=== PATIENT | female | born 1990 | race Caucasian/White ===

== ENCOUNTER 2020-06-21 14:21 | Outpatient (CLI) | payer OTHER, SELFPAY ==
--- NOTE | ~2020-06-21 | US_ITS ---
EXAMINATION: US OB /maternal detail DATE: 06/21/2020 15:15 INDICATION: survey TECHNIQUE: Multiple obstetric sonographic images performed. FINDINGS: No prior studies for comparison. There is a single living fetus in transverse presentation. The placenta is anterior without placenta previa. Amniotic fluid volume is normal. cardiac activity and movement is noted with a heart rate of 147 beats per minute. The following anatomy was identified as normal: 4 chamber heart 3 vessel cord cord insertion kidneys urinary bladder stomach spine diaphragm ventricles cisterna magna cerebellum The following biometric data were obtained: BPD: 49mm corresponds to gestational age 20 weeks 6 days. Head circumference: 181 mm corresponds to gestational age 20 weeks 3 days. Abdominal circumference: 146 mm corresponds to gestational age 19 weeks 6 days. Femur length: 34 mm corresponds to gestational age 20 weeks 6 days. Head circumference to abdominal circumference ratio: 1.23 (normal range for expected gestational age is 1.07-1.25). Estimated weight: 349 grams +/- 52 grams using Hadlock method. IMPRESSION: 1: Single living intrauterine with an estimated gestational age of 20weeks 4days by current ultrasound measurements, with an EDC of 11/04/2020 in transverse presentation. 2. Normal survey. Reviewed, dictated and finalized at location A. EMENTATION DIRECTOR IMPRESSION: 1: Single living intrauterine with an estimated gestational age of 20 weeks 4days by current ultrasound measurements, with an EDC of 11/04/2020 in tra nsverse presentation. 2. Normal survey.
== END 2020-06-21 14:22 | disposition home or self-care (01) ==
LOC: ANHIMG 14:27
PROVIDERS: Visit Provider Obstetrics & Gynecology
DX: Z36.89 Encounter for other specified antenatal screening (principal); Z3A.20 20 weeks gestation of pregnancy
CPT/HCPCS: 76805

== ENCOUNTER 2020-09-27 11:51 | Outpatient (CLI) | payer MEDICAID, SELFPAY ==
--- NOTE | ~2020-09-27 | US_ITS ---
US OB follow up DATE: 09/27/2020 12:33 INDICATION: Measurement of size and dates TECHNIQUE: Real-time imaging and Doppler analysis COMPARISON: 06/21/2020 obstetrical ultrasound FINDINGS: Live single intrauterine intrauterine gestation, fetus in longitudinal lie, vertex presenta tion. heart rate of 144 bpm. Anterolateral fundal placenta. Amniotic fluid index measures 13.0 cm, which is within normal range. 5th percentile FOREST 7.9 cm, 95th percentile FOREST is 25.9 cm. Biparietal diameter: 8.61 cm; 34 weeks 5 days Head circumference: 30.67 cm; 34 weeks 1 day Abdominal circumference: 31.61 cm; 35 weeks 4 days Femur length: 6.88 cm; 35 weeks 2 days Composite age by Hadlock formula based upon the current measurements would be 35 weeks +/- 2 weeks 3 days with HUGO of 11/01/2020, compared to 10/31/2020 by LMP. Estimated weight is 2630 +/- 394.5 g. Estimated weight-GP: 50.4% Femur length/BPD: 79.95, within normal range of 71.0-87.0 Head circumference/abdominal circumference: 0.97, within normal range of 0.93-1.11 Femur length/abdominal circumference: 21.77, within normal range of 20.00-24.00 Femur length/head circumference: 22.44, slightly above normal range of 20.10-22.30 IMPRESSION: Normal amniotic fluid index of 13.0 Estimated weight is 2630 +/- 394.5 g Reviewed, dictated and finalized at Location A. Reviewed, dictated and finalized at location A.
== END 2020-09-27 11:52 | disposition home or self-care (01) ==
LOC: ANHIMG 12:11
PROVIDERS: Visit Provider Nurse Practitioner
DX: O36.5930 Maternal care for other known or suspected poor fetal growth, third trimester, not applicable or unspecified (principal); Z3A.00 Weeks of gestation of pregnancy not specified
CPT/HCPCS: 76816

== ENCOUNTER 2020-10-18 07:56 | Outpatient (CLI) | payer MEDICAID, SELFPAY ==
--- NOTE | ~2020-10-18 | US_ITS ---
EXAMINATION: US OB follow up EXAM DATE: 10/18/2020 08:29 INDICATION: Size less than dates. 3rd trimester. TECHNIQUE: Pelvic obstetrical transabdominal sonogram was performed by a technologist. There are mu ltiple grayscale and Doppler images available for interpretation. Comparison is made to prior examina tion from 09/27/2020. FINDINGS: There is a single fetus identified in vertex presentation with a heart rate of 126 beats pe r minute. The placenta is located in the anterior position. There is no sonographic evidence of retr oplacental hemorrhage identified. The amniotic fluid index is 10.0 centimeters, which is normal. BIOMETRIC DATA: Biparietal diameter (BPD): 9.0 cm ----------------> 36 weeks 3 days. Head circumference (HC): 32.9 cm ----------------> 37 weeks 3 days. Abdominal circumference (AC): 33.2 cm ----------> 37 weeks 1 day. Femur length (FL): 7.3 cm --------------------------> 37 weeks 3 days. These measurements are concordant. HC/AC ratio is 0.99 (The 5th -- 95th percentile range is 0.92-1.05. Estimated weight is 3125 g +/- 469 g. This is the 37th percentile when the currently reported clinical gestation age 38 weeks 1 day, clinical estimated date of delivery (HUGO-OPE) 10/31/2020 is use d. estimated gestational age based on measurements from this exam is 37 weeks 1 day, with an es timated date of delivery (HUGO-AUA) 11/07. IMPRESSION: 1. Single fetus in vertex presentation with heart rate 126 beats per minute. 2. Estimated weight of 3125 grams, 37th percentile using the currently reported clinical gesta tion age of 38 weeks 1 day, HUGO(OPE) 10/31. 3. Normal FOREST 10.0 cm. Reviewed, dictated and finalized at location B. IMPRESSION: 1. Single fetus in vertex presentation with heart rate 126 beats per minute. 2. Estimated weight of 3125 grams, 37th percentile using the currently r eported clinical gestation age of 38 weeks 1 day, HUGO(OPE) 10/31. 3. Normal FOREST 10.0 cm.
== END 2020-10-18 07:57 | disposition home or self-care (01) ==
PROVIDERS: Visit Provider Obstetrics & Gynecology
DX: O36.5933 Maternal care for other known or suspected poor fetal growth, third trimester, fetus 3 (principal); Z3A.38 38 weeks gestation of pregnancy
CPT/HCPCS: 76816

== ENCOUNTER 2020-10-25 05:05 | Inpatient (IN) | payer SELFPAY ==
[2020-10-25] VITALS (50 sets, daily range): BP systolic 83–144; BP diastolic 41–125; PULSE 50–94; RESP 16–20; TEMP 36.2–37; O2SAT 100; BMI 26.5
--- NOTE | 2020-10-25 05:42 | LDADM ---
This patient, Sarah Gamble, was admitted to Labor/Delivery/Recovery 102 on 10/25/20 at 05:05. Plans for labor, pain management and were discussed with patient. Patient/family oriented to hospital policies and general routines including ID bracelet, bed and alarms, visiting hours, pain management, procedures, bathroom and other care routines, personal items, smoking policy, room service/diet and guest tray routines, infant security routines, and visiting hours. Patient/Family are encouraged to report perceived risks to care and to ask questions if they do not understand what they are told or what they should do. See OBIX for further documentation.
[2020-10-25 05:58] LABS: Basophils Absolute Auto 0.1 K/mm3 (0.0-0.1); Basophils Percent Auto 0.8 % (0.2-1.2); Eosinophils Absolute Auto 0.3 K/mm3 (0-0.3); Eosinophils Percent Auto 3.5 % (0-4.4); Hematocrit 34.7 % (37.0-47.0); Hemoglobin 11.1 g/dL (12.0-15.0); Immature Granulocyte Absolute 0.05 K/mm3 (0.00-0.031); Immature Granulocyte Percent A 0.6 % (0-0.5); Lymphocytes Absolute Auto 2.15 K/mm3 (0.9-3.2); Lymphocytes Percent Auto 25.2 % (18.3-44.2); Mean Corpuscular Volume 75.1 fl (80-100); Monocytes Absolute Auto 0.8 K/mm3 (0.1-0.6); Neutrophils Absolute Auto 5.2 K/mm3 (1.3-6.7); Neutrophils Percent Auto 60.9 % (45.5-73.1); Platelet Count Result 238 k/mm3 (150-375); Red Blood Count 4.62 M/mm3 (4.2-5.4); Red Cell Distribution Width 14.1 % (11.5-14.5); White Blood Count 8.5 K/mm3 (4.5-10.0)
[2020-10-25] MEDS: OXYTOCIN 30 UNITS/NS 500 ML 30 UNITS/500 ML BAG IV CONT (06:16)
[2020-10-25] MEDS: LACTATED RINGERS 1,000 ML 125 ML IV CONT (06:17)
--- NOTE | 2020-10-25 09:36 | WPDOBADMIT ---
Obstetrics - Admit Note Admission Note: record reviewed. No pertinent additions to the history and/or any subsequent changes in the physical findings that are not consistent with the expected course of the were found. AROM clear fluid 3//-2 vertex Additions to the history and/or subsequent changes in the physical findings follow. None.
[2020-10-25 10:31] LABS: Rapid Plasma Reagin Non-Reactive (NonReactive)
[2020-10-25] MEDS: fentaNYL CITRATE INJ (*CRX) 100 MCG/2 ML VIAL IV PUSH (11:39)
--- NOTE | 2020-10-25 13:44 | PM.OBPRVD ---
OB - Delivery Note Procedure Delivery date: 10/25/20 Procedure: events: Labor Induction Intrapartal events: None Induction method: AROM and per pitocin protocol Delivery monitor: external FHT and external uterine Route of delivery: Laceration Description: Perineal - 1st Degree Delivery repair: vicryl Specimen: No Quantitative Blood Loss (ml): 70 Anesthesia type: None Disposition: floor Baby Date of : 10/25/20 Time of : 13:31 Weeks of gestation at delivery: 39 gender: Female Weight (pounds): 6 Weight (ounces): 10 presentation: vertex position: Left Occiput Anterior Placenta delivery description: Spontaneous cord vessel description: 3 Vessels and Clamped/Cut score one minute: 8 score five minutes: 9
[2020-10-25] MEDS: OXYTOCIN 30 UNITS/NS 500 ML 30 UNITS/500 ML BAG 125 UNITS IV CONT (14:05)
[2020-10-25] MEDS: WITCH HAZEL 40 PADS 1 PAD TOPICAL (15:46)
[2020-10-25] MEDS: BENZOCAINE 20% AER SPR (*SP) 56 GM CAN 1 SPRAY TOPICAL (15:46)
--- NOTE | 2020-10-25 17:29 | OBPPTRN ---
1643 Patient transferred to post room #278 via W/C. Support person present. Oriented to unit, room, information board, rooming in, admission packet and security measures. Patient verbalizes understanding.
[2020-10-26 05:12] LABS: Hematocrit 35.1 % (37.0-47.0)
[2020-10-26 07:25] VITALS: BP 98/58; PULSE 57; RESP 16; TEMP 36.6; O2SAT 100
[2020-10-26] MEDS: IBUPROFEN 600 MG TABLET PO (08:07)
[2020-10-26] MEDS: DOCUSATE SODIUM 100 MG CAPSULE PO (08:07)
[2020-10-26 11:48] VITALS: BP 108/68; PULSE 68; RESP 16; TEMP 36.6; O2SAT 100
--- NOTE | 2020-10-26 12:07 | PCCCNOTE ---
Care Coordination Consult: Met with pt. and significant other Jah today. Pt. lives at home with Jah and her four children. FOB to this child and her two year old is Jaden. Pt. has questions for nursing regarding whether or not Jah can sign the certificate evene though Jaden is the FOB to baby girl. Pt. is currently received WIC and Link services, plans to add the baby at discharge. Has all necessary equipment for the child at home including a crib, carseat, clothing, bottles, and diapers. A gift basket was provided to pt. resources was also provided to pt. Also provided counseling resources and encouraged pt. to utilize services if she needed. Pt. plans to return home with Jah. Feels safe with Jah and FOB Jaden. Does have further family support including Jah's mother. Pt. denies any further needs.
--- NOTE | 2020-10-26 12:10 | WPDANLDPN2 ---
Anes-Prog Note L&D Date/Time: 10/26/20 12:10 Comfortable throughout: labor and delivery Neuraxial method: epidural Epidural/Spinal procedure site: clean & non-tender Neuro status: Neuro function grossly intact. Cardiovascular status: normal Respiratory status: normal Airway patency: baseline Mental status: baseline Post-Op hydration status: normal Vital Signs: Last Vital Signs Temp 36.6 C 10/26/20 11:48 Pulse 68 10/26/20 11:48 Resp 16 10/26/20 11:48 BP 108/68 10/26/20 11:48 Pulse Ox 100 10/26/20 11:48 Pain score (VAS): /10 I/O: Intake & Output 10/25/20 10/26/20 10/26/20 23:59 07:59 15:59 Intake Total 240 Balance 240 Post-procedural complaints: none Patient feedback: Patient satisfied with anesthetic care.
--- NOTE | 2020-10-26 17:12 | PM.OBPNVD ---
OB - PN: Subj Subjective Date/time seen: 10/26/20 17:12 patient reports doing well desires home to see about her son. moderate bleeding and mild cramping. OB - PN: Obj Data Labs CBC & Chem 7: 10/26/20 02:37 Labs: Laboratory Results - last 24 hr 10/26/20 02:37 Hgb 11.0 L Hct 35.1 L OB - PN A/P Assessment and Plan (1) (normal spontaneous vaginal delivery): Code(s): O80 - Encounter for full-term uncomplicated delivery Status: Acute Assessment and Plan: d/c home declines birthcontrol at this time. Time Spent With Patient Time: Total time spent is greater than 50% in coordination of care (as documented) at patient's floor/unit and/or counseling patient: Exam Narrative: Exam Narrative: ff @ umbilicus
[2020-10-27 15:18] VITALS: BP 103/61; PULSE 78; RESP 20; TEMP 36.9; O2SAT 100
--- NOTE | 2020-10-31 11:27 | P.DS_ITS ---
DS: Admitting Diagnosis Admitting Diagnosis Admitting Diagnosis: induction of labor OB - DS: Summary OB Procedures : NST and Ultrasound OB Procedures Intrapartum: Spontaneous Vag Delivery OB Procedures: : None Peripartum Data Delivery Method: Natural Vaginal Laceration Description: Perineal - 1st Degree complications: none Time Spent with Patient Time attestation: Total time spent providing and/or coordinating discharge services: Discharge Plan Discharge Attending physician on discharge: Samuel Lang Discharging Clinician: Samuel Lang Patient Disposition: Home, Self-Care Activity: may shower and pelvic rest Diet: regular Discharge Instructions: Education: Mom and Baby Guide Given to: Mother Follow-Up: Call your delivering provider's office for an appointment to be seen in: As directed Mom and baby should come to the [facility] for the follow-up appointment. Appointment Date/Time: October 27, 2020 at 3:00 pm What to expect at your follow-up visit: Blood Pressure Check Physical Assessment Call [phone] if you are unable to keep your appointment time. BREAST CARE: * Wear a snug supportive bra. * For engorgement discomfort: Bottle Feeding: * May apply ice packs EPISIOTOMY/PERINEAL CARE: * Until bleeding stops, use your stuart bottle after urinating * Change your pad frequently throughout the day * You may take sitz baths several times a day (fill your bathtub with warm water and soak for 20 minutes.) Do NOT bathe in the water * No tub baths until seen by your physician - You may shower ACTIVITY: * Rest as much as possible. * Do not exercise or lift anything heavier than your baby (such as laundry or other children.) * Avoid stairs or driving as much as possible. * Do not put anything into the vagina. No douching, tampons, or sexual activity until seen by physician. NOTIFY PHYSICIAN IF YOU HAVE ANY QUESTIONS OR IF ANY OF THE FOLLOWING SYMPTOMS OCCUR: * If your perineal area becomes red, swollen, or more painful than what you have experienced in the hospital. * If your vaginal bleeding becomes foul smelling. * If your vaginal bleeding becomes more heavy than a period or if your bleeding changes from pink to bright red. However, you may pass an occasional walnut- sized clot once or twice for the first week . * If you experience a sharp, shooting pain in you calves. * If you discover a hard, reddened area on your breast or if you experience flu- like symptoms. * Temperature of 100.4 or higher DIET: * Eat regular, well-balanced meals. * Drink plenty of fluids daily. Stand Alone Forms: General Discharge Information Follow-up/Referrals: Samuel Lang MD [Physician] - Discharge Medications: Continued prenat.vits,alessia,[id number]-[id number] Tablet 1 tablet PO DAILY RF: 0 Date of admission: 10/25/20 05:05 Primary Care Provider: PHYSICIAN,MERCHANDISE TEAM MANAGER Admitting Provider: Samuel Lang Attending physician on admission: Samuel Lang Condition: Stable
== END 2020-10-26 20:00 | disposition home or self-care (01) | DRG 560 ==
LOC: ANHLDR 05:12 → ANHOB2 16:51
PROVIDERS: Admitting Provider Obstetrics & Gynecology; Visit Provider Obstetrics & Gynecology
DX: O70.0 First degree perineal laceration during delivery (principal); Z37.0 Single live birth; Z3A.39 39 weeks gestation of pregnancy
CPT/HCPCS: 36415; 85014; 85018; 85025; 86592; 86850; 86900; 86901; A9270; J2590; J3010; J7120